=== PATIENT | female | born 1975 | race Caucasian/White ===

== ENCOUNTER 2017-05-26 11:46 | Emergency (ER) | payer BC ==
[~2017-05-26] VITALS: Ht 167.6 cm; Wt 90.4 kg
[~2017-05-26 11:46] MED LIST: ADVIL200 MG PO; PAMELOR10 MG PO; PAXIL10 MG PO; TOPAMAX100 MG PO; TOPAMAX50 MG PO
[2017-05-26 13:22] LABS: INTER. NORMALIZED RATIO 0.9
[2017-05-26 13:23] LABS: D-DIMER ELISA < 150.00 ng/mLDDU (<230)
[2017-05-26 13:26] LABS: CHLORIDE 111 mEq/L (99-109); POTASSIUM 3.9 mEq/L (3.7-5.4); SODIUM 140 mEq/L (136-147)
[2017-05-26 13:27] LABS: MAGNESIUM 2.4 mg/dL (1.3-2.7)
[2017-05-26 13:28] LABS: GLUCOSE 89 mg/dL (70-99)
[2017-05-26 13:29] LABS: ANION GAP 8 MEQ/L (2-14)
[2017-05-26 13:32] LABS: GFR ESTIMATE (CALCULATED) > 59 mL/min/
[2017-05-26 13:33] LABS: UREA NITROGEN (BUN) 16 mg/dL (9-23)
[2017-05-26 13:36] LABS: TROP-I INTERPRETATION NEGATIVE; TROPONIN-I < 0.01 ng/mL (0.0-0.30)
[2017-05-26 14:02] LABS: BASOPHIL COUNT 0.1 K/uL (0-0.1); EOSINOPHIL (%) 2.4 % (0-5); EOSINOPHIL COUNT 0.2 K/uL (0-0.3); HEMATOCRIT 40.2 % (36.0-46.0); IMMATURE GRANULOCYTE (%) 0.2 % (0.0-0.7); INSTRUMENT ABS NEUTROPHIL CT 2.8 K/uL; LYMPHOCYTE COUNT 2.5 K/uL (1.0-2.8); MCH 29.7 PG (29.0-34.0); MCHC 34.1 G/DL (30.0-36.0); MCV 87.2 FL (83-99); MEAN PLAT.VOLUME 9.5 uM^3 (9.5-12.4); MONOCYTE (%) 9.9 % (3-12); MONOCYTE COUNT 0.6 K/uL (0-0.8); NEUTROPHIL (%) 45.7 % (45-76); NEUTROPHIL COUNT 2.8 K/uL (1.8-6.4); PLATELET COUNT 241 K/uL (156-360); RBC DIS.WIDTH-CV 12.8 % (11.8-14.6); RBC DIS.WIDTH-SD 40.3 % (39-53); RED BLOOD COUNT 4.61 M/uL (3.80-5.20); WHITE BLOOD COUNT 6.2 K/uL (4.1-10.2)
[2017-05-26 15:24] LABS: TROP-I INTERPRETATION NEGATIVE; TROPONIN-I < 0.01 ng/mL (0.0-0.30)
[2017-05-26 16:57] VITALS: BP 113/77
== END 2017-05-26 16:58 | disposition home or self-care (01) ==
LOC: EME 11:46
PROVIDERS: Emergency Medicine
DX: R07.9 Chest pain, unspecified (principal); F43.9 Reaction to severe stress, unspecified; I48.91 Unspecified atrial fibrillation; F41.9 Anxiety disorder, unspecified; F32.9 Major depressive disorder, single episode, unspecified; Z88.0 Allergy status to penicillin
CPT/HCPCS: 71010; 80048; 83735; 84484; 85025; 85379; 85610; 85730; 93005; 99281; 99284

== ENCOUNTER → 2017-12-19 | Outpatient (CLI) | payer OTHER, BC | END | disposition home or self-care (01) | LOC: NUC 12-18 15:00 | DX: M19.072 Primary osteoarthritis, left ankle and foot (principal); M19.071 Primary osteoarthritis, right ankle and foot; M17.0 Bilateral primary osteoarthritis of knee; R20.2 Paresthesia of skin; M79.2 Neuralgia and neuritis, unspecified; S93.401D Sprain of unspecified ligament of right ankle, subsequent encounter; S86.011A Strain of right Achilles tendon, initial encounter | CPT/HCPCS: 78315; 78999; A9503 ==